=== PATIENT | male | born 1970 | race Caucasian/White ===

== ENCOUNTER 2017-01-10 13:05 | Emergency (ER) | payer MEDICAID ==
[~2017-01-10] VITALS: Ht 185.4 cm; Wt 136.1 kg
[~2017-01-10 13:05] MED LIST: NOMEDS XX
[2017-01-10] MEDS ORDERED: LIPITOR40 MG PO (13:26)
[2017-01-10] MEDS ORDERED: AMLODIPINE10 MG PO (13:27)
[2017-01-10] MEDS ORDERED: TRICOR 145 MG145 MG NG (13:28)
--- NOTE | 2017-01-10 13:28 | [facility] Report ---
History of Present Issue Date/Time Seen by Provider 01/10/17 1327 Visit Reason Pt arrived: Presenting Problem: Location if Accident: Onset of symptoms date/time:/ or onset unknown for: Have you (or family members/close friends) recently traveled outside the [place]? If Yes, where/when: Have you had exposure to infectious disease within the past month? TB? Other? Specify: Source patient, RN notes reviewed Exam Limitations no limitations Comment Sinus pressure, drainage, sore throat, ear pain, body aches and chills for a few days. No vomiting or diarrhea. ALLERGIES Coded Allergies: No Known Allergies (01/10/17) Home Medications Reported Medications No Home Medications (NO HOME MEDICATIONS) 1 EACH XX ONCE Atorvastatin Calcium (Atorvastatin) 40 MG PO DAILY Amlodipine Besylate (Amlodipine) 10 MG PO DAILY Fenofibrate 145 MG NG QHS Meloxicam (Meloxicam 15MG) 15 MG PO BID ASPIRIN (Aspirin) 81 MG PO DAILY Benazepril Hcl (Benazepril HCl) 20 MG OR DAILY Furosemide (Furosemide) 20 MG FT DAILY History Medical History General CAD? No Angina: No AR: No Hypertension? No Hyperlipidemia? No CHF? No DVT? No PE? No COPD? No Asthma? No Anemia? No GERD? No Gastric ulcers? No GI Bleed? No Hernia? No Thyroid Problems? No Hypothyroidism? No CVA? No Seizures? No Diabetes? No Renal Insuffiency? No UTI? No Stones? No BPH? No GB Disease: No Nephritic Syndrome? No Asplenia? No Hepatitis? No Sickle Cell Disease? No Arthritis? No Migraines? No Cataracts? No Glaucoma? No MRSA? No HIV? No TB? No Anxiety? No Depression? No Cancer? No More? No Immunization HX DT/Tetanus Unknown Surgical Hx Previous Surgery?Y Oral Surgery Social History Smoking Hx Packs/day < 1 Pack Alcohol Alcohol: No Review of Systems All Other Systems Reviewed and Negative Constitutional chills, fever, malaise ENT nose discharge, nose congestion, throat pain. Physical Exam Vital Signs Vital Signs Date Time Temp Pulse Resp B/P Pulse O2 O2 Flow FiO2 Ox Delivery Rate 01/10 1324 98.0 85 20 148/113 99 General Appearance normal appearance, no apparent distress Ear, Nose, Throat abnormal TM (R), abnormal TM (L), sinus pain/drainage, pharyngeal erythema Respiratory Status No: respiratory distress, trachea midline, chest symmetrical. Lung Sounds bilateral: normal breath sounds, lungs clear. Cardiovascular normal exam, regular rate/rhythm, no peripheral edema, no gallop, no JVD, no murmur, no rub Extremities non-tender, normal range of motion, normal inspection, normal capillary refill Neurologic alert, normal exam, oriented x 3 Mental status normal mood/affect Medical Decision Making LABS/Meds/Orders Pt receiving controlled substance in ED? No Results/Orders Laboratory Tests 01/10/17 1324: Group A Strep Screen NOT DETECTED Orders Procedure Date/time Status [facility] STREP SCREEN 01/10 1324 Complete Departure Departure Time of Disposition 1338 Disposition DC Home or Self Care(routine) Clinical Impression Primary Impression: Otitis media Qualifiers: Otitis media type: suppurative Chronicity: acute Laterality: bilateral Recurrence: not specified as recurrent Spontaneous tympanic membrane rupture: without spontaneous rupture Qualified Code: H66.003 - Acute suppurative otitis media without spontaneous rupture of ear drum, bilateral Secondary Impressions: Hypertension Qualifiers: Hypertension type: essential hypertension Qualified Code: I10 - Essential (primary) hypertension Sinusitis Qualifiers: Sinusitis location: maxillary Chronicity: acute Recurrence: non- recurrent Qualified Code: J01.00 - Acute maxillary sinusitis, unspecified Condition STABLE Patient Instructions DI for Otitis Media (Middle Ear Infection)-Child Additional Instructions F/U with PCP Dr Wood re: blood pressure, though he and his state this is much improved over past readings Discharge Counseling Counseled pt/family regarding diagnosis, test results, medications/RX, home care, follow up needs Prescriptions Current Visit Scripts Amoxicillin/Potassium Clav (Augmentin 875-125 Tablet) 1 EACH PO BID #20 TAB Prednisone (Prednisone 20MG) 20 MG PO BID #10 TAB at 1341
[2017-01-10] MEDS ORDERED: MELOXICAM15 MG PO (13:29)
[2017-01-10] MEDS ORDERED: ASPIRIN 81MG TA81 MG PO (13:30)
[2017-01-10] MEDS ORDERED: FUROSEMIDE 20MG20 MG FT (13:31)
[2017-01-10] MEDS ORDERED: BENAZEPRIL HYDR20 MG OR (13:31)
[2017-01-10] MEDS ORDERED: PREDNISONE 20MG20 MG PO (13:41)
[2017-01-10] MEDS ORDERED: AUGMENTIN 875-1 EACH PO (13:41)
[2017-01-10 13:48] VITALS: BP 148/113
== END 2017-01-10 13:50 | disposition home or self-care (01) ==
LOC: UTC 13:05
DX: H66.003 Acute suppurative otitis media without spontaneous rupture of ear drum, bilateral (principal); I10 Essential (primary) hypertension; J01.00 Acute maxillary sinusitis, unspecified